=== PATIENT | male | born 1950 | race Two or more races ===

== ENCOUNTER → 2019-10-27 | Emergency (ER) | payer OTHER ==
[~2019-10-27] VITALS: Ht 193 cm; Wt 95.3 kg
[~2019-10-27] MED LIST: MOBIC15 MG PO; VALSARTAN-HCTZ1 EAC1
== END | disposition home or self-care (01) ==
LOC: ER 01:14
DX: S00.12XA Contusion of left eyelid and periocular area, initial encounter (principal); S60.222A Contusion of left hand, initial encounter; S39.012A Strain of muscle, fascia and tendon of lower back, initial encounter; V49.88XA Car occupant (driver) (passenger) injured in other specified transport accidents, initial encounter; Y93.89 Activity, other specified; Y92.488 Other paved roadways as the place of occurrence of the external cause; Y99.8 Other external cause status